=== PATIENT | male | born 1965 | race Hispanic/Latino ===

== ENCOUNTER 2018-04-24 12:18 | Inpatient (IN) | payer OTHER ==
[~2018-04-24] VITALS: Ht 175.3 cm; Wt 87.1 kg
[2018-04-24 12:53] LABS: ABSOLUTE BASOPHIL COUNT 0 /CUMM (0.0-0.2); ABSOLUTE EOSINOPHIL COUNT 0.2 /CUMM (0.0-0.7); ABSOLUTE GRANULOCYTE CT 3.1 /CUMM (1.4-6.5); ABSOLUTE LYMPH COUNT 1.4 /CUMM (1.2-3.4); ABSOLUTE MONOCYTE COUNT 0.4 /CUMM (0.10-0.60); BASOPHIL % 0.6 % (0.0-2.0); EOSINOPHIL % 3.5 % (0-5); GRANULOCYTE % 60.4 % (42.2-75.2); HEMATOCRIT 38.9 % (42-52); MEAN CORPUSCULAR HGB 26.3 PG (27.0-31.0); MEAN CORPUSCULAR HGB CONC 34.2 G/DL (33.0-37.0); MEAN CORPUSCULAR VOLUME 76.8 FL (80.0-94.0); MEAN PLATELET VOLUME 7.6 FL (7.4-10.4); PLATELET COUNT 274 /CUMM (130-400); RBC DISTRIBUTION WIDTH 14.7 % (11.5-14.5); RED BLOOD CELL CT 5.07 /CUMM (4.70-6.10); WHITE BLOOD CELL COUNT 5.1 /CUMM (4.8-10.8)
--- NOTE | 2018-04-24 12:57 | ED CARDIAC/CP/PALPITATIONS ---
History of Present Illness General Chief Complaint: Chest Pain Stated Complaint: CHEST PAIN Source: patient, EMS Exam Limitations: no limitations Vital Signs & Intake/Output Vital Signs & Intake/Output Vital Signs Date Time Temp Pulse Resp B/P B/P Pulse O2 O2 Flow FiO2 Mean Ox Delivery Rate 04/24 1417 97.1 74 20 140/69 100 Nasal 2.0L Cannula 04/24 1320 82 20 138/82 100 Nasal 2.0L Cannula 04/24 1315 78 140/85 04/24 1310 78 18 140/85 100 Nasal 2.0L Cannula 04/24 1253 100 Nasal 2.0L Cannula 04/24 1234 98.1 92 18 134/87 99 Nasal 2.0L Cannula Allergies Coded Allergies: No Known Allergies (04/24/18) Reconcile Medications Aspirin (Ecotrin*) 325 MG TABLET.DR 325 MG PO DAILY HEART . Atorvastatin Calcium 40 MG TABLET 40 MG PO 1700 HLD . Clopidogrel Bisulfate (Plavix) 75 MG TABLET 75 MG PO DAILY heart . Losartan Potassium (Cozaar) 50 MG TABLET 1 TAB PO DAILY HTN (Reported) . Metoprolol Tartrate 25 MG TABLET 25 MG PO BID HEART . Nitroglycerin (Nitroglycerin Patch) 0.4 MG/HOUR PATCH.TD24 0.4 MG TOP DAILY ANGINA Put for 12 hours and remove daily. Triage Note: 52 YEAR OLD MALE TO ER VIA AMBULANCE FROM [facility] , ALERT AND ORIENTED AND PRIMARILY ANDORRAN SPEAKING, EMS WAS CALLED DUE TO WHILE PT WAS WORKING HE WENT TO THE [facility] DUE TO NAUSEA AND VOMITTED AFTER THAT HE HAD SUDDEN ONSET OF L SIDE CP, DESCRIBES A PRESSURE THAT SHOOTS THROUGH TO HIS BACK, PAIN INCREASES WITH DEEP INSPIRATION. SINUS TACH ON MONITOR HR 104, PER MEDIC BP ELEVATED ON THERE ARRIVAL, PT WAS MEDICATED WITH 325 MG ASA AND 1 SL NITRO FOR 10/10 CP, ON ARRIVAL TO ER PAIN 8/10 AFTER NITRO. PT NOW STATES THAT HE JUST FINISHED A SLEEP STUDY AND WAS DIAGNOSED WITH SLEEP APNEA AND IS IN THE PROCESS OF GETTING C-PAP FOR AT NIGHT, DENIES NAUSEA AT THIS TIME. Triage Nurses Notes Reviewed? yes HPI: Patient presents for evaluation of sudden onset of nausea vomiting followed by left chest pain while at work. Patient states the pain radiated to his back. He does admit that the nausea and vomiting began prior to the chest pain. There is no associated diarrhea, dysuria, shortness of breath, phlegm production ( patient has a more or less chronic cough secondary to allergies), leg pain or fever. Symptoms began while at work. 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 The chest pain is described as a pressure sensation that is currently a 7/10 (patient's pain was initially a 10 over 10 but improved with a sublingual nitroglycerin and aspirin prehospital). Patient was apparently quite hypertensive prehospital as well. Past History Travel History Traveled to [place] past 21 day No Medical History Any Pertinent Medical History? 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 No Review of Systems Review of Systems Constitutional: Reports: no symptoms. EENTM: Reports: no symptoms. Respiratory: Reports: no symptoms. Cardiovascular: Reports: chest pain. GI: Reports: no symptoms. Genitourinary: Reports: no symptoms. Musculoskeletal: Reports: no symptoms. Skin: Reports: no symptoms. Neurological/Psychological: Reports: no symptoms. Hematologic/Endocrine: Reports: no symptoms. Immunologic/Allergic: Reports: no symptoms. All Other Systems: Reviewed and Negative Physical Exam Physical Exam Cardiovascular: SEE BELOW Comments: Gen.: Well-nourished, well-developed, no acute respiratory distress. Head: Normocephalic, atraumatic. Eyes: Normal inspection bilaterally Ears: Normal inspection bilaterally Nose: Normal inspection Throat/mouth : Moist mucosa Neck: Supple, full range of motion, no goiter Heart: Regular rate and rhythm, no murmurs rubs or gallops Lungs: Clear to auscultation bilaterally with normal air entry Chest: Nontender Back: Normal range of motion Abdomen: Soft, diffuse tenderness with brief voluntary guarding but no rebound, nondistended, normal bowel sounds Extremities: Normal range of motion grossly, equal radial pulses, no cyanosis clubbing or edema, calves nontender Neurologic: Cranial nerves grossly intact, speech is clear Skin: warm and dry Psychiatric: Calm, cooperative, no apparent delusions or hallucinations Core Measures ACS in differential dx? Yes CVA/TIA Diagnosis No Sepsis Present: No Sepsis Focused Exam Completed? No Progress Differential Diagnosis: AMI, musculoskeletal pain, pancreatitis, pericarditis, pneumonia, pneumothorax, PSVT, PUD/GERD, PVCs/PACs, unstable angina, V-fib/V- Tach Plan of Care: Orders Procedure Date/time Status Heart Healthy Diet 04/24 D Active Misc Message 04/24 143 Active ED Holding Orders 04/24 143 Active Admit to inpatient 04/24 143 Active Patient Data 04/24 1437 Active Vital Signs 04/24 1437 Active Code Status 04/24 1437 Active Add-on Test (ER Only) 04/24 1434 Active Add-on Test (ER Only) 04/24 1256 Active LIPASE 04/24 1245 Complete Telemetry/Milk Runner 04/24 1243 Active TROPONIN LEVEL 04/24 1243 Complete MAGNESIUM 04/24 1243 Complete CBC WITHOUT DIFFERENTIAL 04/24 1243 Complete BASIC METABOLIC PANEL 04/24 1243 Complete EKG 04/24 1221 Active Current Medications Sig/Melisa Start time Last Medication Dose Stop Time Status Admin Heparin Sodium 25,000 UNIT Q24H 04/24 1430 UNVr (Porcine) (Heparin) Sodium Chloride 500 ML Nitroglycerin 0.5 GM Q6 04/24 1255 UNVr 04/24 (Nitro-Bid) 1315 Laboratory Tests 04/24/18 1245: Anion Gap 7, Estimated GFR > 60, BUN/Creatinine Ratio 22.2, Glucose 109 H, Calcium 9.8, Magnesium 1.8, Troponin I < 0.01, Lipase 58, CBC w Diff NO MAN DIFF REQ, RBC 5.07, MCV 76.8 L, MCH 26.3 L, MCHC 34.2, RDW 14.7 H, MPV 7.6, Gran % 60.4, Lymphocytes % 28.0, Monocytes % 7.5, Eosinophils % 3.5, Basophils % 0.6, Absolute Granulocytes 3.1, Absolute Lymphocytes 1.4, Absolute Monocytes 0.4, Absolute Eosinophils 0.2, Absolute Basophils 0 Diagnostic Imaging: Discussed w/RAD: Radiology Read. CXR Impression: no acute abnormality Initial ED EKG: NSR, rate (97), NONSPECIFIC INFEROLATERAL st SEGMENT CHANGES Comments: 04/24/2018 1:31:47 PM Raudel feels better and his chest pain is currently "a little" but he describes it as a 5 out of 10 in intensity. He seems more comfortable and I think he was even nodding off to sleep upon my entry to the room. 04/24/2018 2:21:28 PM patient's case discussed with Dr. Holm reveals the patient should be admitted and treated for unstable angina until the etiology of his chest pain is more clearly defined. Departure Departure Disposition: STILL A PATIENT Condition: Stable Clinical Impression Primary Impression: Unstable angina Departure Forms: Customer Survey General Discharge Information Prescriptions: Current Visit Scripts Clopidogrel Bisulfate (Plavix) 75 MG PO DAILY #60 TAB . Atorvastatin Calcium 40 MG PO 1700 #60 TAB . Nitroglycerin (Nitroglycerin Patch) 0.4 MG TOP DAILY #60 PAT Put for 12 hours and remove daily. Metoprolol Tartrate 25 MG PO BID #120 TAB . Aspirin (Ecotrin*) 325 MG PO DAILY #60 TAB . Admission Note Spoke With: Gilberto AC,Monico Rodriguez Documentation of Exam: Documentation of any treatments & extenuating circumstances including Concerns Regarding Discharge (functional status, medication knowledge or non-compliance, living conditions, etc.) that warrant an admission rather than observation: Patient's clinical presentation is consistent with unstable angina and he has a history of not only a heart murmur but hypertension. The patient is having ongoing chest pain requiring an IV heparin continuous infusion along with symptomatic control of pain. His EKG shows T-wave inversions potentially reflecting ischemia. I do not feel this patient can be treated safely as an outpatient and he would likely return in worse clinical condition. He is at moderate risk of coronary artery disease and acute ND. During his hospitalization the patient should be on a continuous surveillance system monitor to assess for possible ischemic dysrhythmia. Serial EKGs and troponin level should be obtained and care modified accordingly. Cardiology consultation should be obtained as well. Additional studies such as echocardiogram or cardiac stress test or cardiac catheterization should be considered to more thoroughly assess for atherosclerosis. Medical management should be optimized with platelet inhibitors, blood pressure control and cholesterol control. I feel this patient will require a multiple day hospitalization. Critical Care Note Critical Care Note Critical Care Time: 30-74 min
--- NOTE | 2018-04-24 13:16 | RADIOLOGY REPORT ---
EXAMINATION: XR PORTABLE CHEST CLINICAL INFORMATION: Chest pain. COMPARISON: None TECHNIQUE: Portable frontal view of the chest was obtained. FINDINGS: Low lung volumes. The cardiomediastinal silhouette is somewhat enlarged which may be accentuated by the low lung volumes. The lungs are clear without consolidation, pleural effusion or pneumothorax. IMPRESSION: Low lung volumes. No acute cardiopulmonary process.
[2018-04-24 14:57] LABS: PT 11.9 SEC (9.4-12.5); PTT 32 SEC (25-37)
--- NOTE | 2018-04-24 15:44 | History & Physical ---
Allen Ellison 04/24/18 1544: General Information and HPI MD Statement: I have seen and personally examined KANU KRAEMR and documented this H&P. The patient is a 52 year old M who presented with a patient stated chief complaint of [chest pain]. 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 Patient denies any significant past medical history however his medication claim history show that he has been on amlodipine 10 mg, losartan 50 mg and atorvastatin 20 signifying that he might be having history of hypertension and hyperlipidemia but he reports that he has just been taking 1 of the blood pressure medications. Patient today was at work when he suddenly developed left sided chest pain 10 out of 10 stabbing in nature associated with pressure-like feeling on the chest and radiating to the back. He denies any association of pain with movement or touching the chest wall and reports that he got relief after taking the tablets upon arriving in the ER. He reports slight shortness of breath associated with the chest pain but denies any palpitations. Patient denies any dizziness lightheadedness but volunteers history of nausea but no vomiting. 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 FATHER (Coronary artery disease with NH at 72). MOTHER (Colon cancer). Psychosocial History ETOH Use: occasional use Illicit Drug Use: denies illicit drug use Review of Systems Review of Systems Constitutional: Denies: chills, fever. Cardiovascular: Reports: see HPI, chest pain. Denies: palpitations, syncope. Respiratory: Reports: short of breath. Denies: cough, wheezing. GI: Reports: nausea. Denies: abdominal pain, vomiting. Genitourinary: Denies: no symptoms. Musculoskeletal: Denies: no symptoms. Skin: Denies: no symptoms. All Other Systems: Reviewed and Negative Exam & Diagnostic Data Last 24 Hrs of Vital Signs/I&O Vital Signs Date Time Temp Pulse Resp B/P B/P Pulse O2 O2 Flow FiO2 Mean Ox Delivery Rate 04/24 1417 97.1 74 20 140/69 100 Nasal 2.0L Cannula 04/24 1320 82 20 138/82 100 Nasal 2.0L Cannula 04/24 1315 78 140/85 04/24 1310 78 18 140/85 100 Nasal 2.0L Cannula 04/24 1253 100 Nasal 2.0L Cannula 04/24 1234 98.1 92 18 134/87 99 Nasal 2.0L Cannula Intake & Output 04/24 1600 04/24 0800 04/24 0000 Intake Total 0 Output Total Balance 0 Intake, Oral 0 Patient 181 lb Weight Physical Exam General Appearance Alert, Oriented X3, Cooperative, No Acute Distress Skin No Rashes Skin Temp/Moisture Exam: Warm/Dry Sepsis Skin Exam (color): Normal for Ethnicity HEENT Atraumatic, Mucous Membr. moist/pink Neck Supple, No JVD Cardiovascular Regular Rate, Normal S1, Normal S2, No Murmurs Lungs Clear to Auscultation, Normal Air Movement Abdomen Normal Bowel Sounds, Soft, No Tenderness Neurological Normal Speech, Normal Tone Extremities No Clubbing, No Cyanosis, No Edema Last 24 Hrs of Labs/[place]: Laboratory Tests 04/24/18 1245: Anion Gap 7, Estimated GFR > 60, BUN/Creatinine Ratio 22.2, Glucose 109 H, Calcium 9.8, Magnesium 1.8, Troponin I < 0.01, Lipase 58, PT 11.9, INR 1.09, APTT 32, CBC w Diff NO MAN DIFF REQ, RBC 5.07, MCV 76.8 L, MCH 26.3 L, MCHC 34.2, RDW 14.7 H, MPV 7.6, Gran % 60.4, Lymphocytes % 28.0, Monocytes % 7.5, Eosinophils % 3.5, Basophils % 0.6, Absolute Granulocytes 3.1, Absolute Lymphocytes 1.4, Absolute Monocytes 0.4, Absolute Eosinophils 0.2, Absolute Basophils 0 Diagnostic Data EKG Results Sinus rhythm regular and normal axis around 97 bpm with T-wave inversions CXR Results Low lung volumes. No acute cardiopulmonary process. Assessment/Plan Assessment: This is a 52 years old gentleman presenting with first episode of chest pain left side severe 10 out of 10 radiating to the back associated with shortness of breath and nausea but denies any radiation to the arm or the jaw. Had slight improvement of the chest pain with the medication and denies any exacerbation with movement. Unstable angina Hypertension Hyperlipidemia Admit the patient to telemetry floor Continuous shelter monitor Troponin and EKG 3 sets initial set was negative at 0.01 Check U tox for drug of abuse Continue IV heparin per ACS protocol Patient already received loading dose of Plavix and aspirin continue with baby aspirin 81 mg daily Add lipid panel to a.m. blood work Echocardiogram N.p.o. from midnight for possible stress test or invasive treatment Start the patient home medication losartan 50 mg Patient is full code Pain pathway As Ranked By This Provider Problem List: 1. Unstable angina 2. Hypertension Core Measures/Misc (04/30) Acute Coronary Syndrome ACS Diagnosis: No Congestive Heart Failure Congestive Heart Failure Diagnosis No Cerebrovascular Accident CVA/TIA Diagnosis: No VTE (View Protocol) VTE Risk Factors Age>40 No Mechanical VTE Prophylaxis d/t N/A MechProphylax Ordered No VTE Pharm Prophylaxis d/t NA PharmProphylax ordered Sepsis (View protocol) Sepsis Present: No If YES complete Sepsis Event Note If YES complete Sepsis Event Note Resident Review Statement Resident Statement: My review and assessment as above MaciasLuisa whitfieldzaina 04/24/18 1650: Core Measures/Misc (04/30) Sepsis (View protocol) If YES complete Sepsis Event Note If YES complete Sepsis Event Note Attending MD Review Statement Attending Statement Attending MD Statement: examined this patient, discuss w/resident/PA/CHILDCARE WORKER, agreed w/resident/PA/CHILDCARE WORKER, reviewed EMR data (avail) Attending Assessment/Plan: 52 yr old latvian speaking male ( Spoke to pt using [employer]) who presented to the ER with c/c of lt side chest pressure while at work. 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 Pt says the pain was 10/10 and pressure like with some associated nausea and vomiting prior to the chest pain. Pt was given s/l NTG by EMS with some relief of chest pressure to 7/10 and was given Nitro paste in ER with further relief of chest pressure down to 5/10. Pt does not have any worsening of chest pain with movement or with deep inspiration. Has not had any similar chest pain before. Denies smoking or drugs and drinks socially 1-2 times a month. Pt in ER was found to have negative trop and is being admitted for chest pain. Unstable angina/ Chest pain- pt will be admitted to telemetry and will do serial trop and repeat ekg in am . His ekg in er showed some t wave inversions. will get cardiology consult and will get 2d echo and start pt on heparin drip and cont on asa. pt got asa by EMS prior to arrival to ER. will f/u on cardiology recommendations. If pt cont to have chest pain then will consider nitro drip. will get UTox. Will check lipid profile . Will start on statin and bp meds given the pt has h/o htn with questionable compliance. Sleep apnea- pt was recently diagnosed with sleep apnea but has not started using his cpap yet. dw pt the care plan. Will get Aic level too.
[2018-04-24] MEDS ORDERED: COZAAR50 M1 PO (16:15)
[2018-04-24] MEDS ORDERED: ASPIRIN EC81 M1 PO (16:16)
--- NOTE | 2018-04-24 16:43 | Admission Certification ---
Admission Certification Certification Statement - As attending physician, I certify that at the time of - admission, based on clinical presentation, severity of - symptoms, need for further diagnostic testing and - therapeutic interventions, and risk of adverse outcomes - without in-hospital treatment, in my clinical assessment, - this patient requires an acute hospital stay for a minimum - of two nights or longer. I have also considered psychsocial - factors such as support system, advanced age, financial - issues, cognitive issues, and failed out-patient treatments, - past re-admission history, safety of patient, and lack of - compliance as applicable. Specific rationale supporting this admission is: chest pain / unstable angina
--- NOTE | 2018-04-24 21:26 | Cons- Cardiology ---
General Information and HPI Consulting Request Date of Consult: 04/24/18 Requested By: Gilberto AC,Monico Rodriguez History of Present Illness: Raudel is a 52 years old male with history of hypertension and dyslipidemia who presented to the ER for evaluation of chest pain. The discomfort was described as a sharp and severe pain that is exacerbated by deep inspiration and exhalation. It radiates toward his back. There is no clear exertional component to this pain and it was partially, but not completely, relieved by nitroglycerine. There is no associated nausea, vomiting or diaphoresis. He also reports shortness of breath. He has no lightheadedness or palpitations.Finally, he does have some bilateral leg discomfort. The patient was noted to have inferior and anterolateral T wave inversions. Allergies/Medications Allergies: Coded Allergies: No Known Allergies (04/24/18) Home Med List: Aspirin (Ecotrin*) 81 MG TABLET.DR 1 TAB PO DAILY Heart Health (Reported) Losartan Potassium (Cozaar) 50 MG TABLET 1 TAB PO DAILY HTN (Reported) Review of Systems Review of Systems: A review of systems was unremarkable. 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 FATHER (Coronary artery disease with [place] at 72). MOTHER (Colon cancer). Psychosocial History Where Do You Live? Home Smoking Status: Never Smoked ETOH Use: occasional use Illicit Drug Use: denies illicit drug use Exam & Diagnostic Data Vital Signs and I&O Vital Signs Date Time Temp Pulse Resp B/P B/P Pulse O2 O2 Flow FiO2 Mean Ox Delivery Rate 04/24 1417 97.1 74 20 140/69 100 Nasal 2.0L Cannula 04/24 1320 82 20 138/82 100 Nasal 2.0L Cannula 04/24 1315 78 140/85 04/24 1310 78 18 140/85 100 Nasal 2.0L Cannula 04/24 1253 100 Nasal 2.0L Cannula 04/24 1234 98.1 92 18 134/87 99 Nasal 2.0L Cannula Intake & Output 04/24 0804/24 0000 04/23 1600 04/23 0800 04/23 0000 Intake Total 0 Output Total Balance 0 Intake, Oral 0 Patient 181 lb Weight Physical Exam: General: WD/WN male in NAD; alert and oriented x 3 HEENT: NC/AT, PERRL, EOMI Neck: no JVD, no carotid bruit Heart: RRR w/o murmurs Lungs: clear bilaterally Abdomen: soft, NT, +ve bowel sounds Extremities: no edema Assessment/Plan Assessment/Plan * This patient has multiple risk factors for coronary artery disease and chest pain with ischemic ST segment depressions. The exact description of his pain is a bit atypical but there is a language barrier. My strongest suspicion is that the patient has unstable angina which we will treat for. * Begin aspirin 325mg daily, Plavix 75mg daily after a 300mg bolus, IV heparin. * Begin NTG paste 1/2 inch q6 hours. * Continue Losartan. Begin Metoprolol 25mg BID and begin a statin. O2 2L by NC. * Follow cardiac enzymes until they peak. * Obtain an echocardiogram. * Will risk stratify with a treadmill nuclear stress test in AM. Consult Acknowledgment - Thank you for your consult request.
[2018-04-24 22:18] LABS: PTT 50 SEC (25-37)
[2018-04-24 22:50] VITALS: BP 136/92
[2018-04-25 05:49] LABS: PTT 99 SEC (25-37)
[2018-04-25 06:47] VITALS: BP 158/92
[2018-04-25 07:55] LABS: ABSOLUTE BASOPHIL COUNT 0 /CUMM (0.0-0.2); ABSOLUTE EOSINOPHIL COUNT 0.2 /CUMM (0.0-0.7); ABSOLUTE GRANULOCYTE CT 3.1 /CUMM (1.4-6.5); ABSOLUTE MONOCYTE COUNT 0.5 /CUMM (0.10-0.60); BASOPHIL % 0.6 % (0.0-2.0); EOSINOPHIL % 3.7 % (0-5); GRANULOCYTE % 53.6 % (42.2-75.2); HEMATOCRIT 40.2 % (42-52); MEAN CORPUSCULAR HGB 25.9 PG (27.0-31.0); MEAN CORPUSCULAR HGB CONC 33.6 G/DL (33.0-37.0); MEAN CORPUSCULAR VOLUME 77.1 FL (80.0-94.0); MEAN PLATELET VOLUME 7.8 FL (7.4-10.4); PLATELET COUNT 269 /CUMM (130-400); RBC DISTRIBUTION WIDTH 15.1 % (11.5-14.5); RED BLOOD CELL CT 5.21 /CUMM (4.70-6.10); WHITE BLOOD CELL COUNT 5.8 /CUMM (4.8-10.8)
--- NOTE | 2018-04-25 08:03 | PN- Housestaff ---
[facility] 04[facility]25[facility] 0803: Subjective Follow-up For: Unstable angina Tele-Events Since Last Visit: Patient remained in sinus rhythm with heart rate between 4783 Subjective: No overnight events. Patient remained afebrile. Seen and examined this morning. Patient is Tanzanian-speaking and understanding Turkmen minimally. Patient denied chest pain, palpitation, nausea, vomiting, chill, fever, abdominal pain dysuria. His stress test was scheduled tomorrow. Review of Systems Constitutional: Denies: chills, fever. EENTM: Reports: no symptoms. Cardiovascular: Denies: chest pain, palpitations, syncope. Respiratory: Denies: cough, short of breath, sputum production. Gastrointestinal: Denies: abdominal pain, constipation, diarrhea, nausea, vomiting. Genitourinary: Reports: no symptoms. Musculoskeletal: Reports: no symptoms. Neurological/Psychological: Denies: anxiety, confusion, depressed. Objective Last 24 Hrs of Vital Signs/I&O Vital Signs Date Time Temp Pulse Resp B/P B/P Pulse O2 O2 Flow FiO2 Mean Ox Delivery Rate 04/25 0910 65 158/92 04/25 0852 65 158/92 04/25 0647 97.7 65 20 158/92 97 Nasal 1.0L Cannula 04/25 0214 97 160/80 04/24 2250 98.9 92 18 136/92 98 Nasal 1.0L Cannula 04/24 2121 Nasal 2.0L Cannula 04/24 1417 97.1 74 20 140/69 100 Nasal 2.0L Cannula 04/24 1320 82 20 138/82 100 Nasal 2.0L Cannula 04/24 1315 78 140/85 04/24 1310 78 18 140/85 100 Nasal 2.0L Cannula 04/24 1253 100 Nasal 2.0L Cannula 04/24 1234 98.1 92 18 134/87 99 Nasal 2.0L Cannula Intake & Output 04/25 1600 04/25 0800 04/25 0000 Intake Total 160 80 Output Total Balance 160 80 Intake, IV 160 80 Patient 191 lb Weight Weight Bed scale Measurement Method Physical Exam General Appearance: Alert, Oriented X3, Cooperative Skin Temp/Moisture Exam: Warm/Dry Sepsis Skin Exam (color): Normal for Ethnicity HEENT: Atraumatic, PERRLA, EOMI Neck: Supple Cardiovascular: Normal S1, Normal S2 Lungs: Clear to Auscultation Abdomen: Soft, No Tenderness Neurological: Normal Speech, Strength at 5/5 X4 Ext, Normal Tone Extremities: No Edema Assessment/Plan Assessment: 52-year-old male, Tanzanian-speaking with past medical history of hypertension, obstructive sleep apnea and heart murmur came to ED with chief complaint of chest pain, nausea, vomiting at work. Seeing the patient on telemetry floor for following problems. Unstable angina: -Patient has exertional chest pain while he was on work associated with shortness. -His troponins remain negative but he has ischemic ST segment depression. -Continue aspirin and clopidogrel -Continue metoprolol -Continue IV heparin -Continue nitroglycerin as needed for chest pain -Patient will be n.p.o. midnight for stress test tomorrow for risk stratification. -Follow-up cardiology recommendations. History of hypertension and hyperlipidemia: -Continue losartan and Lipitor -His cholesterol is 237 and LDL is 144 DVT prophylaxis: Mechanical and patient is already on IV heparin CODE STATUS: Full code Problem List: 1. Unstable angina Pain Ratin Pain Location: none Pain Goal: Remain pain free Pain Plan: pain pathway Tomorrow's Labs & Rationales: cbc/bep/mag Mili Florez MD 04/25/18 1002: Attending MD Review Statement Attending Statement Attending MD Statement: examined this patient, discuss w/resident/PA/BORE MILL OPERATOR FOR PLASTIC, agreed w/resident/PA/BORE MILL OPERATOR FOR PLASTIC, reviewed EMR data (avail), discussed with nursing, discussed with case mgmt Attending Assessment/Plan: 82-year-old Tanzanian-speaking male past medical history of hypertension and hyperlipidemia who is here with chest pain, he was evaluated by cardiology who is worried about unstable angina versus ACS. We have him on maximal medical therapy with IV heparin and the plan is a nuclear stress test in a.m.
[2018-04-25 13:14] LABS: PTT 67 SEC (25-37)
[2018-04-25 14:34] VITALS: BP 136/88
--- NOTE | 2018-04-25 21:58 | PN- Cardiology ---
Subjective Subjective: * No complaints. * normal troponin Objective Vital Signs and I&Os Vital Signs Date Time Temp Pulse Resp B/P B/P Pulse O2 O2 Flow FiO2 Mean Ox Delivery Rate 04/251 Room Air 04/25 1945 66 140/60 04/25 1434 97.9 64 20 136/88 95 Room Air 04/25 0910 65 158/92 04/25 0852 65 158/92 04/25 0647 97.7 65 20 158/92 97 Nasal 1.0L Cannula 04/25 0214 97 160/80 04/24 2250 98.9 92 18 136/92 98 Nasal 1.0L Cannula Intake & Output 04/25 1600 04/25 0800 04/25 0000 04/24 1600 04/24 0800 04/24 0000 Intake Total 750 160 80 0 Output Total Balance 750 160 80 0 Intake, IV 150 160 80 Intake, Oral 600 0 Patient 191 lb 181 lb Weight Weight Bed scale Measurement Method Physical Exam: General: WD/WN male in NAD; alert and oriented x 3 HEENT: NC/AT, PERRL, EOMI Neck: no JVD, no carotid bruit Heart: RRR w/o murmurs Lungs: clear bilaterally Abdomen: soft, NT, +ve bowel sounds Extremities: no edema Assessment/Plan Assessment/Plan * This patient has multiple risk factors for coronary artery disease and chest pain with ischemic ST segment depressions. The exact description of his pain is a bit atypical but there is a language barrier. My strongest suspicion is that the patient has unstable angina which we will treat for. * Continue aspirin 325mg daily, Plavix 75mg daily and IV heparin. * Continue NTG paste 1/2 inch q6 hours. * Continue Losartan. Begin Metoprolol 25mg BID and begin a statin. O2 2L by NC. * Will risk stratify with a treadmill nuclear stress test in AM Continue telemetry? Yes
[2018-04-25 21:59] VITALS: BP 132/82
[2018-04-26 00:31] LABS: PTT 62 SEC (25-37)
[2018-04-26 06:44] VITALS: BP 146/72
--- NOTE | 2018-04-26 07:43 | PN- Housestaff ---
[facility] 0743: Subjective Follow-up For: Unstable angina Tele-Events Since Last Visit: Patient remained in sinus rhythm with heart rate between 5462 Subjective: No overnight events. Patient remained afebrile. Seen and examined this morning. He is Rwandan-speaking and understanding Maori minimally. He denied chest pain, short of breath, nausea, vomiting, chill, fever, abdominal pain dysuria. Patient is n.p.o. and will go for cardiac stress test today. Review of Systems Constitutional: Denies: chills, fever. EENTM: Reports: no symptoms. Cardiovascular: Denies: chest pain, palpitations. Respiratory: Denies: cough, short of breath, sputum production. Gastrointestinal: Denies: abdominal pain, constipation, diarrhea, nausea, vomiting. Genitourinary: Reports: no symptoms. Neurological/Psychological: Reports: no symptoms. Objective Last 24 Hrs of Vital Signs/I&O Vital Signs Date Time Temp Pulse Resp B/P B/P Pulse O2 O2 Flow FiO2 Mean Ox Delivery Rate 04/26 0644 98.2 70 20 146/72 95 Room Air 04/25 2159 97.8 78 20 132/82 95 Room Air 04/25 2121 Room Air 04/25 1945 66 140/60 04/25 1434 97.9 64 20 136/88 95 Room Air 04/25 0910 65 158/92 04/25 0852 65 158/92 Intake & Output 04/26 0800 04/26 0000 04/25 1600 Intake Total 160 80 750 Output Total Balance 160 80 750 Intake, IV 160 80 150 Intake, Oral 600 Patient 192 lb Weight Weight Bed scale Measurement Method Physical Exam General Appearance: Alert, Oriented X3, Cooperative Skin Temp/Moisture Exam: Warm/Dry Sepsis Skin Exam (color): Normal for Ethnicity HEENT: Atraumatic, PERRLA, EOMI Neck: Supple Cardiovascular: Normal S1, Normal S2 Lungs: Clear to Auscultation Abdomen: Soft, No Tenderness Neurological: Normal Speech, Strength at 5/5 X4 Ext, Normal Tone Extremities: No Edema Assessment/Plan Assessment: 52-year-old male, Rwandan-speaking with past medical history of hypertension, obstructive sleep apnea and heart murmur came to ED with chief complaint of chest pain, nausea, vomiting at work. Seeing the patient on telemetry floor for following problems. Unstable angina: -Patient has exertional chest pain while he was on work associated with shortness. -His troponins remain negative but he has ischemic ST segment depression. -Continue aspirin and clopidogrel -Continue metoprolol -Continue IV heparin -Continue nitroglycerin as needed for chest pain -Patient is n.p.o. and will go for stress test today for risk stratification. -Follow-up cardiology recommendations. History of hypertension and hyperlipidemia: -Continue losartan and Lipitor -His cholesterol was 237 and LDL is 144 DVT prophylaxis: Mechanical and patient is already on IV heparin CODE STATUS: Full code Problem List: 1. Unstable angina Pain Ratin Pain Location: none Pain Goal: Remain pain free Pain Plan: pain pathway Tomorrow's Labs & Rationales: none Mili Florez MD 04/26/18 0945: Attending MD Review Statement Attending Statement Attending MD Statement: examined this patient, discuss w/resident/PA/PIPER HELPER, agreed w/resident/PA/PIPER HELPER, discussed with family, reviewed EMR data (avail), discussed with nursing, discussed with case mgmt, reviewed images Attending Assessment/Plan: Patient is scheduled for his nuclear stress test today. If the nuclear stress test is negative then discharge, will follow up on the results.
--- NOTE | 2018-04-26 07:58 | ECHOCARDIOGRAM REPORT ---
KANU KRAMER Age: 52 : 1965 Gender: M Exam Date: 04/25/2018 11:06 Exam Location: 1 [address] Ht (in): 69 Wt (lb): 181 BSA: 2.01 BP: 158 / 92 Ordering Physician: Allen Ellison MD Referring Physician: Allen Ellison MD Technologist: Carlos Mahoney [facility] Room Number: [id number] Indications: Other chest pain Rhythm: Sinus Technical Quality: good FINDINGS Left Ventricle Normal left ventricular size, wall thickness and systolic function with no obvious regional wall motion abnormalities. Normal left ventricular diastolic filling pattern for age. The ejection fraction is visually estimated at 60%. Right Ventricle The right ventricle is normal in size and function. Right Atrium The right atrium is normal in size. Left Atrium The left atrium is normal in size. The interatrial septum is intact. Mitral Valve The mitral valve is normal in structure and function. There is no mitral regurgitation. Aortic Valve Structurally normal aortic valve without significant sclerosis or stenosis. There is no aortic regurgitation. Tricuspid Valve The tricuspid valve is normal in structure and function. There is trace tricuspid regurgitation. Pulmonary artery systolic pressure is normal. Pulmonic Valve Structurally normal pulmonic valve. There is trace pulmonic regurgitation. Pericardium Normal pericardium without effusion. No pleural effusion. Great Vessels Normal aortic root dimension. The aortic arch and great vessels are well seen and are normal. CONCLUSIONS 1. Normal EF of 60%. 2. Trace TR. 3. Trace PI. Compa Holm M.D. (Electronically Signed) Final Date: 26 April 2018 07:52 MEASUREMENTS (Male / Female) Normal Values 2D ECHO LV Diastolic Diameter PLAX 4.1 cm 4.2 - 5.9 / 3.9 - 5.3 cm LV Systolic Diameter PLAX 2.6 cm 2.1 - 4.0 cm LV Fractional Shortening PLAX 36.6 % 25 - 46 % LV Ejection Fraction 2D Teich 66.8 % IVS Diastolic Thickness 1.0 cm LVPW Diastolic Thickness 1.2 cm LV Relative Wall Thickness 0.5 RV Internal Dim ED PLAX 2.9 cm 1.9 - 3.8 cm LVOT Diameter 1.9 cm Aortic Root Diameter 2.3 cm LA Systolic Diameter LX 2.6 cm 3.0 - 4.0 / 2.7 - 3.8 cm LA Volume 29.0 cm 18 - 58 / 22 - 52 cm Ascending Aorta Diameter 3.2 cm DOPPLER AV Peak Velocity 139.0 cm/s AV Peak Gradient 7.7 mmHg AV Mean Velocity 96.4 cm/s AV Mean Gradient 4.0 mmHg AV Velocity Time Integral 33.9 cm LVOT Peak Velocity 80.5 cm/s LVOT Peak Gradient 2.6 mmHg LVOT Mean Velocity 51.5 cm/s LVOT Mean Gradient 1.0 mmHg LVOT Velocity Time Integral 17.9 cm LVOT Stroke Volume 50.8 cm AV Area Cont Eq vti 1.5 cm AV Area Cont Eq pk 1.6 cm MV Peak Velocity 73.1 cm/s MV Peak Gradient 2.1 mmHg MV Mean Velocity 39.4 cm/s MV Mean Gradient 1.0 mmHg Mitral E Point Velocity 82.9 cm/s Mitral A Point Velocity 55.3 cm/s Mitral E to A Ratio 1.5 MV PHT Velocity 74.7 cm/s MV Deceleration [place] 138.0 cm/s MV Pressure Half Time 162.4 ms MV Area PHT 1.4 cm MV Deceleration Time 236.0 ms PV Peak Velocity 103.0 cm/s PV Peak Gradient 4.2 mmHg PV Mean Velocity 68.6 cm/s PV Mean Gradient 2.0 mmHg PV Velocity Time Integral 23.3 cm LV E' Lateral Velocity 10.7 cm/s Mitral E to LV E' Lateral Ratio 7.7 LV E' Septal Velocity 9.8 cm/s Mitral E to LV E' Septal Ratio 8.5
[2018-04-26 07:59] LABS: ABSOLUTE BASOPHIL COUNT 0 /CUMM (0.0-0.2); ABSOLUTE EOSINOPHIL COUNT 0.2 /CUMM (0.0-0.7); ABSOLUTE GRANULOCYTE CT 2.9 /CUMM (1.4-6.5); ABSOLUTE LYMPH COUNT 1.8 /CUMM (1.2-3.4); ABSOLUTE MONOCYTE COUNT 0.4 /CUMM (0.10-0.60); BASOPHIL % 0.7 % (0.0-2.0); GRANULOCYTE % 54.1 % (42.2-75.2); HEMATOCRIT 39.3 % (42-52); MEAN CORPUSCULAR HGB 25.9 PG (27.0-31.0); MEAN CORPUSCULAR HGB CONC 33.5 G/DL (33.0-37.0); MEAN CORPUSCULAR VOLUME 77.1 FL (80.0-94.0); MEAN PLATELET VOLUME 7.8 FL (7.4-10.4); PLATELET COUNT 267 /CUMM (130-400); RBC DISTRIBUTION WIDTH 14.8 % (11.5-14.5); WHITE BLOOD CELL COUNT 5.4 /CUMM (4.8-10.8)
[2018-04-26] MEDS ORDERED: ATORVASTATIN CA40 M1 PO ×2 (08:05→18:22)
[2018-04-26] MEDS ORDERED: ASPIRIN EC325 M2 PO ×2 (08:05→18:22)
[2018-04-26] MEDS ORDERED: METOPROLOL TART25 M1 PO ×2 (08:05→18:22)
--- NOTE | 2018-04-26 08:07 | Patient Discharge Instructions ---
Discharge Instructions General Discharge Information You were seen/treated for: Chest pain Unstable angina Watch for these problems: Chest pain, short of breath, palpitation, lightheadedness, abdominal pain. If you experience any of these symptoms come to ED or call to her primary care physician. Special Instructions: Please call and make a F/U with your PCP within one week after discharge Please call and make a F/U with your slip laster Dr Holm within one week after discharge Diet Recommended Diet: Heart Healthy Activity Activity Self Limited: Yes Acute Coronary Syndrome Inclusion Criteria At DC or during hospital stay patient has or had the following: ACS DIAGNOSIS No Discharge Core Measures Meds if any: Prescribed or Continued at Discharge Meds if any: NOT Prescribed or Continued at Discharge Congestive Heart Failure Inclusion Criteria At DC or during hospital stay patient has or had the following: CHF DIAGNOSIS No Discharge Core Measures Meds if any: Prescribed or Continued at Discharge Meds if any: NOT Prescribed or Continued at Discharge Cerebrovascular accident Inclusion Criteria At DC or during hospital stay patient has or had the following: CVA/TIA Diagnosis No Discharge Core Measures Meds if any: Prescribed or Continued at Discharge Meds if any: NOT Prescribed or Continued at Discharge Venous thromboembolism Inclusion Criteria VTE Diagnosis No VTE Type NONE VTE Confirmed by (Test) NONE Discharge Core Measures - Per Current guidelines, there needs to be overlap - treatment for the first 5 days of Warfarin therapy. - If discharged on Warfarin prior to 5 days of - overlap therapy, the patient will need to be - assessed for post discharge needs including - *Post discharge parental anticoagulation - *Warfarin and/or parental anticoagulation education - *Follow up date to check INR post discharge At least 5 days overlap therapy as Inpatient No Meds if any: Prescribed or Continued at Discharge Note: Overlap Therapy is Warfarin and Anticoagulant Meds if any: NOT Prescribed or Continued at Discharge
--- NOTE | 2018-04-26 11:22 | Discharge Summary ---
Visit Information Visit Dates Admission Date: 04/24/18 Discharge Date: 04/26/18 Hospital Course Course Attending Physician: Gautam AC,Mili Mcmillan Primary Care Physician: Shaneka العراقي,[facility] Course: 52-year-old male, Tajik-speaking with past medical history of hypertension, obstructive sleep apnea and heart murmur came to ED with chief complaint of chest pain, nausea, vomiting at work. ED course: Vitals: Temperature 98.1, pulse 92, respiratory rate 18, blood pressure 130/87, oxygen saturation 99% on 2 L of oxygen Labs: WBC count 5.1, hemoglobin 13.3, hematocrit 38.9, platelet count 274, sodium 141, potassium 4.4, BUN 20, creatinine 0.9, glucose 109, BUN/creatinine ratio 22.2, lipase 58, magnesium 1.8, troponin less than 0.01 Unstable angina: Patient had exertional chest pain while he was on work associated with shortness. His troponins remain negative but he has ischemic ST segment depression. Possibly due to unstable angina. Cardiology consult was placed and recommendations were followed. Patient was started on aspirin and clopidogrel. He was given IV heparin that was discontinued later on after his stress test. Patient was also given metoprolol. His home medications including losartan was continued. Patient was given nitroglycerin as needed for pain. His echocardiogram showed ejection fraction 60% without any wall motion abnormality. Patient's chest pain relieved and cardiology recommended cardiac stress test to risk stratify him. Patient's nuclear stress test was completely negative. Patient was instructed to follow cardiology as outpatient for further recommendations. History of hypertension and hyperlipidemia: Patient's antihypertensive medication including losartan was continued. His lipid profile was checked that showed cholesterol 237 and LDL 144. He was started on Lipitor 40 mg. Patient will continue Lipitor after the discharge. DVT prophylaxis: Mechanical and patient was on IV heparin. CODE STATUS: Full code Allergies: Coded Allergies: No Known Allergies (04/24/18) Pertinent Lab Results: Echocardiogram on 04/26/2018: CONCLUSIONS 1. Normal EF of 60%. 2. Trace TR. 3. Trace PI. Chest x-ray on 04/24/2018: IMPRESSION: Low lung volumes. No acute cardiopulmonary process WBC count 5.4, hemoglobin 13.2, hematocrit 39.3, platelet count 267, sodium 141, potassium 4.2, creatinine 0.9, magnesium 2.2, troponin less than 0.01, less than 0.01, less than 0.01 Disposition Summary Disposition Principal Diagnosis: Chest pain, suspected unstable angina initially. Additional Diagnosis: History of hypertension ,hyperlipidemia Discharge Disposition: home or self care Discharge Instructions General Discharge Information Code Status: Full Code Patient's Diet: Heart healthy diet Patient's Activity: Self-limited Follow-Up Instructions/Appts: Follow-up with your primary care physician in 1 week Follow-up with your wash mill operator in 1 week Medications at Discharge Discharge Medications: Stop taking the following medications: Aspirin (Ecotrin*) 81 MG TABLET. ORAL DAILY Qty = 30 Continue taking these medications: Losartan Potassium (Cozaar) 50 MG TABLET 1 Tablet ORAL DAILY Qty = 30 Instructions: . Comments: Last Taken:04/26/18 Time:1 PM Start taking the following new medications: Clopidogrel Bisulfate (Plavix) 75 MG TABLET 75 Milligram ORAL DAILY Qty = 60 No Refills Instructions: . Comments: Last Taken:04/26/18 Time:8 AM Atorvastatin Calcium (Atorvastatin Calcium) 40 MG TABLET 40 Milligram ORAL 5 PM Qty = 60 No Refills Instructions: . Comments: Last Taken:04/26/18 Time:4 PM Nitroglycerin (Nitroglycerin Patch) 0.4 MG/HOUR PATCH.TD24 0.4 Milligram On the skin DAILY Qty = 60 No Refills Instructions: Put for 12 hours and remove daily. Comments: Last Taken:NOT GIVEN IN THE HOSPITAL Time: Metoprolol Tartrate (Metoprolol Tartrate) 25 MG TABLET 25 Milligram ORAL TWICE DAILY Qty = 120 No Refills Instructions: . Comments: Last Taken:04/26/18 Time:1 PM Aspirin (Ecotrin*) 325 MG TABLET. 325 Milligram ORAL DAILY Qty = 60 No Refills Instructions: . Comments: Last Taken:04/26/18 Time:8 AM Copies To: Shaneka العراقي,Natalie Holm MD PHD,[facility] Rodriguez
[2018-04-26 14:40] LABS: PTT 33 SEC (25-37)
[2018-04-26 15:23] VITALS: BP 138/84
--- NOTE | 2018-04-26 17:25 | PN- Cardiology ---
Subjective Subjective: * No chest discomfort. * Reasonable exercise tolerance of 9 minutes on stress test with equivocal ST depressions. Nuclear imaging is pending. * Hypertensive response to exercise is noted. Objective Vital Signs and I&Os Vital Signs Date Time Temp Pulse Resp B/P B/P Pulse O2 O2 Flow FiO2 Mean Ox Delivery Rate 04/26 1523 98.3 83 20 138/84 95 Room Air 04/26 1307 70 146/72 04/26 1305 70 146/72 04/26 0644 98.2 70 20 146/72 95 Room Air 04/25 2159 97.8 78 20 132/82 95 Room Air 04/25 2121 Room Air 04/25 1945 66 140/60 Intake & Output 04/26 1600 04/26 0800 04/26 0000 04/25 1600 04/25 0000 Intake Total 400 160 80 750 160 80 Output Total Balance 400 160 80 750 160 80 Intake, IV 100 160 80 150 160 80 Intake, Oral 300 600 Patient 192 lb 191 lb Weight Weight Bed scale Bed scale Measurement Method Physical Exam: General: WD/WN male in NAD; alert and oriented x 3 HEENT: NC/AT, PERRL, EOMI Neck: no JVD, no carotid bruit Heart: RRR w/o murmurs Lungs: clear bilaterally Abdomen: soft, NT, +ve bowel sounds Extremities: no edema Assessment/Plan Assessment/Plan * This patient has multiple risk factors for coronary artery disease and chest pain with ischemic ST segment depressions. The exact description of his pain is a bit atypical but there is a language barrier. His stress test results are pending. If normal it is okay to discharge to home with follow up in the office in one week. * Continue aspirin 325mg daily, Plavix 75mg daily. Stop IV heparin. * Change NTG to a patch at 0.4mg/hr for 12 hours daily. * Continue Losartan, Metoprolol 25mg BID and a statin. Continue telemetry? Yes
--- NOTE | 2018-04-26 17:42 | NUCLEAR MEDICINE REPORT ---
EXERCISE STRESS AND RESTING SPECT MYOCARDIAL PERFUSION IMAGING STUDY WITH GATED SPECT IMAGES: CLINICAL INDICATION: Chest pain. PROCEDURE: Regional myocardial perfusion was assessed using a 1 day protocol. Stress images were obtained on 04/26/2018 following the intravenous administration of 18.9 mCi Tc 99m Myoview. Stress was performed using the standard Raul protocol, with the patient reaching a peak heart rate of 101% maximal predicted heart rate. Rest images were obtained 04/26/2018 following the intravenous administration of 28.9 mCi Technetium 99m Myoview. Single photon emission tomographic (SPECT) images were obtained. SPECT images were acquired in a 64 x 64 matrix of 64 projections over 180 degrees. These were reconstructed into standard short axis, horizontal and vertical long axis cardiac projections. FINDINGS: The post stress images demonstrate the left ventricular chamber to be normal in size. There is homogeneous distribution of activity in the left ventricular myocardium with no regions of abnormally decreased activity noted. The resting images also demonstrate homogeneous distribution of activity in the left ventricular myocardium, and are not significantly changed from the post stress images. The stress images were obtained using a gated SPECT technique, which permits visualization of wall motion and calculation of the left ventricular ejection fraction. No left ventricular wall motion abnormalities are noted on the stress study. The calculated left ventricular ejection fraction is 51% on the stress study. No previous study is available for comparison. IMPRESSION: Normal exercise stress and resting myocardial perfusion study with normal left ventricular wall motion and ejection fraction.
[2018-04-26] MEDS ORDERED: PLAVIX75 M1 PO ×2 (17:47→18:22)
[2018-04-26] MEDS ORDERED: NITROGLYCERIN1 EACH TOP ×2 (17:51→18:22)
== END 2018-04-26 19:00 | DRG 198 ==
LOC: ERH 12:18 → EDBD 12:18 → EDSEX 12:18 → ERH 13:27 → 1NO 14:37 → ERHI 14:37 → ENRESERV 15:53 → ENTRNSPT 16:16 → 1NO 16:16 → EDTRNSPTSTS 16:17 → 1NO 16:40 → CMPTRNSPT 16:45 → 1NO 04-25 10:15
PROVIDERS: Emergency Medicine; Internal Medicine; Preventive Medicine Public Health & General Preventive Medicine; Student in an Organized Health Care Education/Training Program
PROC: 4A12XM4 Monitoring of Cardiac Stress, External Approach (ICD-10-PCS; principal; 2018-04-26)
PROC: 3E033HZ Introduction of Radioactive Substance into Peripheral Vein, Percutaneous Approach (ICD-10-PCS; principal; 2018-04-26)
DX: I20.0 Unstable angina (principal); I10 Essential (primary) hypertension; E78.5 Hyperlipidemia, unspecified
CPT/HCPCS: 1NSP; 36415; 36592; 71045; 78452; 80307; 82436; 93005; 93010; 93306; A9502; J0131; J1644